=== PATIENT | female | born 1985 | race Caucasian/White ===

== ENCOUNTER 2017-09-11 20:16 | Emergency (ER) | payer OTHER ==
--- NOTE | 2017-09-11 20:55 | Diagnostic Imaging Report ---
DALE WILSON (HOUSING QUALITY STANDARD INSPECTOR) - ER [facility] [id number] [address] Report Submission Date: Sep 11, 2017 8:52:02 PM CDT Patient Study Name: ALIYAH RIVERA Date: Sep 11, 2017 8:31:23 PM CDT Modality Type: DX Gender: F Description: LOWER EXTREMITY : 83 Institution: [facility] Physician: DALE WILSON (HOUSING QUALITY STANDARD INSPECTOR) - ER Three views of the left foot CLINICAL HISTORY: Pain for 3 days after moving furniture. FINDINGS: Examination left foot in plantar, lateral and oblique views fails to demonstrate evidence of fracture, dislocation or other bone or joint pathology. Electronically signed on Sep 11, 2017 8:52:02 PM CDT by: Ilan MCCARTHY
[2017-09-11] MEDS ORDERED: KETOROLAC TROMETHAMINE 60 MG/2 ML VIAL IM ONE (21:00)
[2017-09-11] MEDS ORDERED: traMADol HCL 50 MG TABLET PO ONE (21:08)
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
[2017-09-11 21:27] VITALS: BP 124/76
== END 2017-09-11 21:25 | disposition home or self-care (01) ==
LOC: ED 20:16
DX: M79.672 Pain in left foot (principal)
CPT/HCPCS: 73630; J1885; 96372; 99283

== ENCOUNTER 2017-10-19 19:24 | Emergency (ER) | payer OTHER ==
[2017-10-19] MEDS ORDERED: ENOXAPARIN SODIUM 100 MG/ML DISP.SYRIN SQ ONE (19:53)
--- NOTE | 2017-10-19 19:59 | ED Physician Documentation ---
General Adult - HISTORIAN Historian: patient - HPI Stated Complaint: leg pain Chief Complaint: General Adult Additional Information: Noted left leg pain at 1000 today. Denies injury. 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 Most recent was 4 months ago in left calf. Also thinks she is . LNMP 3 weeks ago and has had brown spotting yesterday and today. Two home tests "equivocal." Urine HCG here negative, so she would like a d dimer or other blood test to see if she is . Explained no US here, so she wants CT. She has appointment with her primary, Dr. Sarmiento, tomorrow, for same problems. She says she is lactating and having uterine cramps. No treatment attempted. No other associated signs. - ROS CONST: no problems - PAST HX Past History: other (above) Surgeries/Procedures: cholecystectomy, other (BTL) Allergies/Adverse Reactions: Allergies Allergy/AdvReac Type Severity Reaction Status Date / Time No Known Allergies Allergy Verified 10/19/17 20:29 Home Medications: Ambulatory Orders Medication Instructions Recorded Furosemide [Lasix] 20 mg PO DAILY 09/11/17 Ketorolac Tromethamine [Toradol] 10 mg PO TID #15 tablet 09/11/17 Lisdexamfetamine Dimesylate 70 mg PO DAILY 09/11/17 [Vyvanse] Potassium Chloride [Klor-Con 10] 10 meq PO DAILY 09/11/17 Albuterol Sulfate [Proair HFA] 1 inh IH PRN PRN 10/19/17 Alprazolam [Xanax] 2 mg PO BID PRN 10/19/17 - SOCIAL HX Smoking History: cigarettes Drug Use: marijuana - FAMILY HX Family History: No - VITAL SIGNS Vital Signs: Vital Signs Temp Pulse Resp BP Pulse Ox 124/76 09/11/17 21:25 - REVIEWED ASSESSMENTS Nursing Assessment Reviewed: Yes Vitals Reviewed: Yes ED Results Lab/Radiology - Orders Orders: ED Orders Category Date Time Status URINALYSIS Routine Lab 10/19/17 Ordered URINE HCG [URINE HCG] Stat Lab 10/19/17 Uncollected Enoxaparin Sodium [Lovenox] Med 10/19/17 19:53 Once 85 mg SQ NOW ONE General Adult Physical Exam - PHYSICAL EXAM GENERAL APPEARANCE: mild distress (anxious) EENT: eye inspection normal, ENT inspection normal NECK: normal inspection, supple RESPIRATORY: no resp distress, breath sounds normal CVS: reg rate & rhythm, heart sounds normal, no murmur ABDOMEN: normal bowel sounds BACK: normal inspection (pain free movement) SKIN: warm/dry, normal color EXTREMITIES: no evidence of injury, no edema, other (no tenderness, mass, erythema. Neg Bertrand's bilaterally. No swelling. Eugene DP's, PT's 1-2+) NEURO: CN's nml as tested, motor nml, sensation nml Discharge Clincal Impression: Leg pain Qualifiers: Laterality: left Qualified Code(s): M79.605 - Pain in left leg Referrals: Everett Sarmiento MD [Primary Care Provider] - 2 Days Condition: Good Disposition: 01 HOME, SELF-CARE Decision to Admit: NO Decision Time: 21:10
[2017-10-19 20:42] LABS: BASOPHILS % 0.6 (0.0-1.5); EOSINOPHILS % 1.4 % (0.0-6.8); MEAN CORPUSCULAR HEMOGLOBIN 31.1 pg (28.0-34.0); MEAN CORPUSCULAR VOLUME 95.3 fl (80.0-100.0); MONOCYTES % 5.5 % (0.0-11.0); NEUTROPHILS # 3.4 # k/uL (1.4-7.7)
[2017-10-19 20:53] LABS: eGFR (African) > 60; eGFR (Non-African) > 60
[2017-10-19 21:52] VITALS: BP 134/76
[2017-10-19 22:21] LABS: APPEARANCE,URINE CLEAR (CLEAR); COLOR,URINE AMBER (YELLOW)
[2017-10-19 22:22] LABS: OCCULT BLOOD,URINE 2+ (NEGATIVE); PH URINE 6.5 (5.0 - 8.0); UROBILINOGEN URINE 0.2 Eu (0.2-1.0)
== END 2017-10-19 21:20 | disposition home or self-care (01) ==
LOC: ED 19:24
DX: M79.605 Pain in left leg (principal)
CPT/HCPCS: 80053; 81002; 81025; 85025; 85379; 85610; J1650; 96372